=== PATIENT | male | born 1960 | race Caucasian/White ===

== ENCOUNTER 2016-08-05 04:09 | Emergency (ER) | payer OTHER ==
--- NOTE | 2016-08-05 08:02 | DIAGNOSTIC IMAGING REPORT ---
PROCEDURE: CT ABDOMEN/PELVIS W/O CONTRAST INDICATION: ABDOMINAL PAIN TECHNIQUE: Axial CT images were obtained through the abdomen and pelvis without IV contrast. Coronal and sagittal reformations were created. COMPARISON: None. FINDINGS: Moderate right lower and middle lobe atelectasis. Normal size heart. No hiatal hernia. 3 mm proximal to mid right ureteral calculus. Mild right hydronephrosis and mild to moderate right perinephric inflammation. There is another nonobstructing upper pole 3 mm right intrarenal calculus and three nonobstructing upper pole left intrarenal calculi. The largest is 4 mm. There are left parapelvic cysts and 5.5 cm exophytic left cortical cyst. The unenhanced appearance of the liver, adrenal glands, pancreas and spleen is normal. The abdominal aorta is normal in its course and caliber with trace atherosclerosis. There are no suspicious calcifications, retroperitoneal adenopathy or masses. The stomach, upper bowel loops, and mesentery appears normal. Intact anterior abdominal wall. No free fluid, or inflammation. Moderate sigmoid diverticulosis. The unenhanced appearance of the prostate gland, seminal vesicles, urinary bladder, pelvic vessels, and pelvic bowel loops is normal. Surgically absent appendix. No suspicious calcifications, free fluid, or mass. Intact osseous structures. Flowing bridging osteophytes in the lower thoracic spine. Fat-containing left inguinal hernia. IMPRESSION: 1. 3 mm proximal to mid right ureteral calculus causing mild right hydronephrosis and mild to moderate perinephric inflammation. 2. Nonobstructing intrarenal calculi bilaterally. 3. Sigmoid diverticulosis. 4. Surgically absent appendix. 5. Findings called to the emergency room. All CT scans at this facility use dose modulation, iterative reconstruction, and/or weight-based dosing when appropriate to reduce radiation dose to as low as reasonably achievable.
--- NOTE | 2016-08-05 08:06 | ED NURSING NOTES ---
Clinical Report - Nurses [facility] [address] [place] [address] 08/05/2016 4:11 Patient: ANGELA SKINNER [facility]#: [id number] TRIAGE Triage time 04:15 Aug 05 2016. Acuity: LEVEL 3. Chief Complaint: FREQUENCY VOIDING (Right flank and groin pain). 04:20 08/05/16. SEPSIS SCREEN: Sepsis Screen. Negative (no infection suspected/documented). JOSEPHINE COMA SCORE: Hermosa Coma Scale: 15- eyes open spontaneously (4); best verbal response- oriented x 4 (5); best motor response- obeys commands (6). --04:20 Rica Weiss R.N. 04:15 08/05/16. BP: 158/102 (regular adult cuff) taken on the left arm. HR: 97. RR: 18. O2 saturation: 97% on room air. Temp: 98.3 F (oral). Pain level now: 5/10. --04:20 Rica Weiss R.N. Weight: 108.8 kg stated. Height/Length: 72 inches Per Patient. BMI: 32.6. --04:18 Rica Weiss R.N. Medications None. --04:16 Rica Weiss R.N. Allergies No Known Drug Allergy. --04:17 Rica Weiss R.N. History Arrived by private vehicle. Historian: patient. Accompanied by family. Primary physician (No PCP). This started just prior to arrival. ( Patient has had history of kidney stones before, last one was 7 years ago). ( Nausea and vomiting). Treatment CAM MAKER: None. SOCIAL HX: Never smoker. Occasional alcohol use; consumes liquor. No infectious disease exposure. ABUSE ASSESSMENT: No report of abuse. --04:20 Rica Weiss R.N. PROBLEMS: Diabetes Mellitus Type 2. Nephrolithiasis. --04:17 Rica Weiss R.N. ADDITIONAL SURGERIES: Appendectomy. Tonsillectomy. --04:17 Rica Weiss R.N. Interventions ID band on patient. To treatment room. --04:20 Rica Weiss R.N. PHYSICAL ASSESSMENT 04:08/05/16. Ambulatory to room. Patient gowned. GENERAL / NEURO / PSYCH: Alert. Oriented X 4. Appears in no acute distress. HEENT: Mucous membranes are pink. RESPIRATORY: Respirations not labored. Breath sounds within normal limits. CVS: Normal heart rate and rhythm. Capillary refill less than 2 seconds. GI / : Abdomen soft and nontender. Bowel sounds within normal limits. SKIN: Skin is warm. --04:21 Rica Weiss R.N. NURSING PROGRESS NOTES 04:21 08/05/16. The plan of care for this patient has been created. Patient gowned. Head of bed elevated. Reassurance given. Two patient identifiers checked. Call light placed in reach. Side rails up x 2. Bed placed in lowest position. Brakes of bed on. Patient ready for evaluation- chart flagged and ED physician notified. --04:21 Rica Weiss R.N. 04:35 08/05/2016 Site #1 started via IV in the right hand with an 20g angiocath, with aseptic technique and good blood return; one attempt. Blood drawn: rainbow set. Labeled in the presence of the patient and sent to the lab. Saline lock flushed with 10 mL saline. --04:35 Rica Weiss R.N. 04:36 08/05/2016 Zofran (Ondansetron HCl) IVP 4 mg given over 1 minute(s) via site #1. Allergies verified and confirmed 5 rights. IV patency established. IV site checked: no pain, redness, or swelling. IV flushed thoroughly pre- and post-medication administration. IVP given by RN. --04:36 Rica Weiss R.N. 04:37 08/05/2016 Morphine IVP 4 mg given over 2 minute(s) via site #1. Allergies verified, confirmed 5 rights and sedative warning given to the patient. IV patency established. IV site checked: no pain, redness, or swelling. IV flushed thoroughly pre- and post-medication administration. IVP given by RN. --04:37 Rica Weiss R.N. 04:40 08/05/16. --04:40 Rica Weiss R.N. 04:38 08/05/16. BP: 152/96. HR: 72. RR: 18. O2 saturation: 97% on room air. Pain level now: 07/04. --04:40 Rica Weiss R.N. 04:42 08/05/2016 Toradol IVP 30 mg given over 1 minute(s) via site #1. Allergies verified and confirmed 5 rights. IV patency established. IV site checked: no pain, redness, or swelling. IV flushed thoroughly pre- and post-medication administration. IVP given by RN. --04:42 Rica Weiss R.N. 04:44 08/05/2016 Started bag #1 1000 mL IV Fluids IV NS (Saline); bolus of 1000 mL over 1 hour(s) via site #1 via IV pump. Allergies verified and confirmed 5 rights. IV patency established. IV site checked: no pain, redness, or swelling. IV flushed thoroughly pre- and post-medication administration. --04:44 Rica Weiss R.N. 05:09 08/05/2016 Zofran IVP Response: no adverse reaction pain is gone now. Symptoms have improved the patient feels better. --05:09 Rica Weiss R.N. 05:09 08/05/2016 Morphine IVP Response: no adverse reaction pain is improving. Symptoms have improved the patient feels better. --05:09 Rica Weiss R.N. 05:09 08/05/2016 Toradol IVP Response: no adverse reaction pain is improving. Symptoms have improved the patient feels better. --05:09 Rica Weiss R.N. 05:08/05/16. ( Patient offered blanket and he declined). --05:09 Rica Weiss R.N. 05:08/05/16. BP: 144/85 (regular adult cuff) taken on the left arm. HR: 62. RR: 18. O2 saturation: 92% on room air. Pain level now: 04/05. --05:10 Rica Weiss R.N. 05:46 08/05/2016 Started bag #1 1000 mL IV Fluids IV NS (Saline); bolus of 1000 mL over 1 hour(s) via site #1 via IV pump. Allergies verified and confirmed 5 rights. IV patency established. IV site checked: no pain, redness, or swelling. IV flushed thoroughly pre- and post-medication administration. --05:46 Rica Weiss R.N. 05:46 08/05/16. BP: 142/91 (regular adult cuff) taken on the left arm. HR: 68. RR: 18 (regular). O2 saturation: 93% on room air. Pain level now: 04/05. --05:47 Rica Weiss R.N. 05:47 08/05/16. ( Patient offered a blanket, he declined). --05:47 Rica Weiss R.N. 06:13 08/05/16. BP: 126/82 (regular adult cuff) taken on the left arm. HR: 73. RR: 18. O2 saturation: 94% on room air. Pain level now: 05/06. --06:14 Rica Weiss R.N. 06:14 08/05/16. ( Patient still unable to leave a UA at this time). --06:14 Rica Weiss R.N. 06:33 08/05/16. BP: 131/77 (regular adult cuff) taken on the left arm. HR: 70. RR: 18. O2 saturation: 94% on room air. Pain level now: 07/04. --06:34 Rica Weiss R.N. 05:50 08/05/2016 IV Fluids IV NS Discontinued: bag #1 completed. Total amount infused: 1000 mL. IV patency established. IV site checked: no pain, redness, or swelling. IV flushed thoroughly. --06:44 Rica Weiss R.N. 06:58 08/05/2016 Morphine IVP 4 mg given over 1 minute(s) via site #1. Allergies verified, confirmed 5 rights and sedative warning given to the patient. IV patency established. IV site checked: no pain, redness, or swelling. IV flushed thoroughly pre- and post-medication administration. IVP given by RN. --06:58 Rica Weiss R.N. 06:59 08/05/16. ( Patient still unable to leave a UA). --06:59 Rica Weiss R.N. 07:02 08/05/2016 IV Fluids IV NS Discontinued: bag #2 completed. Total amount infused: 1000 mL. IV patency established. IV site checked: no pain, redness, or swelling. IV flushed thoroughly. --07:02 Rica Weiss R.N. 07:02 08/05/16. ( Patient was bladder scanned and only revealed 153cc urine). --07:02 Rica Weiss R.N. 07:02 08/05/16. BP: 132/90 (regular adult cuff) taken on the left arm. HR: 75. RR: 18 (regular). O2 saturation: 93% on room air. Pain level now: 04/05. --07:03 Rica Weiss R.N. Care transferred and report given (RUFUS Sahu). --07:13 Rica Weiss R.N. 07:13 08/05/16. Care transferred and report received (from RUFUS Strauss). --07:13 Adelina Lima R.N. 07:29 08/05/16. Patient ID band checked for patient name and birthdate: patient confirmed. Clean catch urine collected with return of yellow-colored clear urine; odor is normal; sample sent to lab for urinalysis. Specimen labeled in the presence of the patient. Patient and family informed about reason for wait and about plan of care. --07:29 Adelina Lima R.N. 07:30 08/05/2016 Morphine IVP Response: no adverse reaction pain is gone now. Symptoms have improved the patient feels better. 08/05/2016 07:02 BP: 132/90. HR: 75. RR: 18. O2 saturation: 93%. Pain level now: 04/05. --07:30 Adelina Lima R.N. DISPOSITION / DISCHARGE 08:16 08/05/16. BP: 136/86. HR: 80. RR: 17. O2 saturation: 99%. Temp: deferred. Pain level now: 05/06. --08:17 Adelina Lima R.N. 08:07 08/05/2016 Site #1 removed upon discharge. Manual pressure and bandaid applied. --08:17 Adelina Lima R.N. 08:17 08/05/16. No learning barriers present. Discharge instructions provided and reviewed with the patient and spouse. Reviewed warnings. Reviewed medication(s). Treatments reviewed. Reviewed diet. Patient and spouse verbalized understanding. Written instructions provided in Slovak. The patient was discharged by the physician. He was discharged home and accompanied by spouse. He left the Emergency Department ambulatory and via private vehicle. Spouse driving. --08:17 Adelina Lima R.N. Locked/Released at 08/05/2016 8:36 by Adelina Lima R.N.
--- NOTE | 2016-08-05 08:06 | ED ORDER SUMMARY ---
..... Patient: ANGELA SKINNER OrderSheet [facility] VisitID: [id number] [place] [address] 55y, M Registration Date/Time: 08/05/2016 ORDER SHEET Weight: 108.8 kg (stated) Allergies: No Known Drug Allergy GENERAL ORDERS: CBC w Diff Urgent (04:21 08/05/2016 Marc Aleman) (4:36 Hanh R.N.) CMP Urgent (04:08/05/2016 Marc Aleman) (4:36 MATTanderbarbra R.N.) UA-Culture if indicated Urgent (04:08/05/2016 Marc Aleman) (Ack 4:44 AMADAullkatie) (Ack 4:44 Hanh R.N.) (7:28 Oumar R.N.) PT with INR Urgent (04:08/05/2016 Marc Aleman) (4:38 Hanh R.N.) Lipase Urgent (04:08/05/2016 Marc Aleman) (4:36 MATTanderbarbra R.N.) CT Abd/Pel wo Cont Urgent (06:54 08/05/2016 Marc Aleman) (Ack 6:55 LMuller) (7:12 JSanders R.N.) MEDICATION ORDERS: IV FLUIDS: IV NS : initial bolus 1000 mL (1000 mL/hr), then none - for X1 (NOW) (04:21 08/05/2016 Marc Aleman) (4:44 Hanh R.N.) Zofran IV 4 mg (NOW) (04:34 08/05/2016 MATTanderbarbra R.N. verbal order read back to Marc Aleman) (4:36 MATTanderbarbra R.N.) Morphine IV 4 mg (HIGH ALERT MEDICATION, NOW) (04:35 08/05/2016 MATTanders R.N. verbal order read back to Marc Aleman) (4:38 MATTanders R.N.) Toradol IV 30 mg (NOW) (04:38 08/05/2016 MATTanderbarbra R.N. verbal order read back to Marc Aleman) (4:42 JSanders R.N.) IV NS : initial bolus 1000 mL (1000 mL/hr), then none - for X1 (NOW) (05:39 08/05/2016 Marc Aleman) (5:46 JSanders R.N.) Morphine IV 4 mg (HIGH ALERT MEDICATION, NOW) (06:46 08/05/2016 Marc Aleman) (Ack 6:55 JSanders R.N.) (6:58 JSanders R.N.) ORDER SHEET NOTES: [Electronically signed by Adelina Lima R.N. (08:36 08/05/2016)] [Electronically signed by Baljinder Wilson Dr. (07:27 08/06/2016)] [Electronically locked/signed by Adelina Lima R.N. (08:36 08/05/2016)]
--- NOTE | 2016-08-05 08:06 | ED ORDER SUMMARY ---
..... Patient: ANGELA SKINNER OrderSheet [facility] VisitID: [id number] [place] [address] 55y, M Registration Date/Time: 08/05/2016 ORDER SHEET Weight: 108.8 kg (stated) Allergies: No Known Drug Allergy GENERAL ORDERS: CBC w Diff Urgent (04:21 08/05/2016 Marc Aleman) (4:36 Hanh R.N.) CMP Urgent (04:08/05/2016 Marc Aleman) (4:36 MATTanderbarbra R.N.) UA-Culture if indicated Urgent (04:08/05/2016 Marc Aleman) (Ack 4:44 AMADAullkatie) (Ack 4:44 Hanh R.N.) (7:28 Oumar R.N.) PT with INR Urgent (04:08/05/2016 Marc Aleman) (4:38 Hanh R.N.) Lipase Urgent (04:08/05/2016 Marc Aleman) (4:36 MATTanderbarbra R.N.) CT Abd/Pel wo Cont Urgent (06:54 08/05/2016 Marc Aleman) (Ack 6:55 LMuller) (7:12 JSanders R.N.) MEDICATION ORDERS: IV FLUIDS: IV NS : initial bolus 1000 mL (1000 mL/hr), then none - for X1 (NOW) (04:21 08/05/2016 Marc Aleman) (4:44 Hanh R.N.) Zofran IV 4 mg (NOW) (04:34 08/05/2016 MATTanderbarbra R.N. verbal order read back to Marc Aleman) (4:36 MATTanderbarbra R.N.) Morphine IV 4 mg (HIGH ALERT MEDICATION, NOW) (04:35 08/05/2016 MATTanders R.N. verbal order read back to Marc Aleman) (4:38 MATTanders R.N.) Toradol IV 30 mg (NOW) (04:38 08/05/2016 MATTanderbarbra R.N. verbal order read back to Marc Aleman) (4:42 JSanders R.N.) IV NS : initial bolus 1000 mL (1000 mL/hr), then none - for X1 (NOW) (05:39 08/05/2016 Marc Aleman) (5:46 JSanders R.N.) Morphine IV 4 mg (HIGH ALERT MEDICATION, NOW) (06:46 08/05/2016 Marc Aleman) (Ack 6:55 JSanders R.N.) (6:58 JSanders R.N.) ORDER SHEET NOTES: [Electronically signed by Adelina Lima R.N. (08:36 08/05/2016)] [Electronically signed by Baljinder Wilson Dr. (07:27 08/06/2016)] [Electronically locked/signed by Adelina Lima R.N. (08:36 08/05/2016)]
--- NOTE | 2016-08-05 08:06 | ED CLINICAL REPORT ---
Clinical Report - Physicians/Mid Levels [facility] [address] [place] [address] 08/05/2016 4:11 Patient: ANGELA SKINNER Time Seen: 042. Arrived- By private vehicle. Historian- patient. HISTORY OF PRESENT ILLNESS Chief Complaint: FLANK PAIN and right. This started today and is still present (staying the same). It was abrupt in onset and has been intermittent but is not gone now. It is described as located in the right flank and radiating (right groin). At its maximum, severity described as severe. When seen in the E.D., severity described as severe. Modifying factors. Not worsened by anything. Not relieved by anything. The patient has had nausea. No loss of appetite, vomiting or diarrhea. No recent travel. Similar symptoms previously: None. Recent medical care: Not recently seen/assessed. REVIEW OF SYSTEMS No fever or skin rash. All systems otherwise negative, except as recorded above. PAST HISTORY See nurses notes. Medications: None. Allergies: No Known Drug Allergy. SOCIAL HISTORY Never smoker. No alcohol use or drug use. No recent travel. Is a local resident. FAMILY HISTORY Negative. ADDITIONAL NOTES The nursing notes have been reviewed. PHYSICAL EXAM Vital Signs: 08/05/2016 04:15 BP: 158/102. HR: 97. RR: 18. O2 saturation: 97%. Temp: 98.3 F. Pain level now: 5/10. Blood pressure normal. Oxygen saturation normal. Appearance: Alert. Oriented X3. No acute distress. Eyes: Pupils equal, round and reactive to light. Eyes normal inspection. ENT: Ears normal. Nose normal. Pharynx normal. Neck: Normal inspection. Neck supple. CVS: Normal heart rate and rhythm. Heart sounds normal. Pulses normal. Respiratory: No respiratory distress. Breath sounds normal. Chest nontender. No rales, rhonchi or wheezes. Abdomen: Soft and nontender. Bowel sounds normal. Back: Moderate CVA tenderness on the right. Skin: Skin warm and dry. Normal skin color. No rash. Normal skin turgor. Extremities: Extremities exhibit normal ROM. No lower extremity edema. Neuro: Oriented X 3. No motor deficit. No sensory deficit. LABS, X-RAYS, AND EKG Abdominal CT: Addendum: Description of gallbladder was inadvertently left off of the initial report. Findings (gallbladder): Tiny calcifications are present dependently within the phrygian cap at the gallbladder fundus. There are at least two coarse calcifications in dependently near the neck of the gallbladder measuring about 10 mm. No pericholecystic inflammation, wall thickening, or fluid. Impression: 1. Cholelithiasis without CT evidence of cholecystitis. 2. Additional findings discussed with Dr. Wilson. Addendum by: Anay Velasquez MD PROCEDURE: CT ABDOMEN/PELVIS W/O CONTRAST INDICATION: ABDOMINAL PAIN TECHNIQUE: Axial CT images were obtained through the abdomen and pelvis without IV contrast. Coronal and sagittal reformations were created. COMPARISON: None. FINDINGS: Moderate right lower and middle lobe atelectasis. Normal size heart. No hiatal hernia. 3 mm proximal to mid right ureteral calculus. Mild right hydronephrosis and mild to moderate right perinephric inflammation. There is another nonobstructing upper pole 3 mm right intrarenal calculus and three nonobstructing upper pole left intrarenal calculi. The largest is 4 mm. There are left parapelvic cysts and 5.5 cm exophytic left cortical cyst. The unenhanced appearance of the liver, adrenal glands, pancreas and spleen is normal. The abdominal aorta is normal in its course and caliber with trace atherosclerosis. There are no suspicious calcifications, retroperitoneal adenopathy or masses. The stomach, upper bowel loops, and mesentery appears normal. Intact anterior abdominal wall. No free fluid, or inflammation. Moderate sigmoid diverticulosis. The unenhanced appearance of the prostate gland, seminal vesicles, urinary bladder, pelvic vessels, and pelvic bowel loops is normal. Surgically absent appendix. No suspicious calcifications, free fluid, or mass. Intact osseous structures. Flowing bridging osteophytes in the lower thoracic spine. Fat-containing left inguinal hernia. IMPRESSION: 1. 3 mm proximal to mid right ureteral calculus causing mild right hydronephrosis and mild to moderate perinephric inflammation. 2. Nonobstructing intrarenal calculi bilaterally. 3. Sigmoid diverticulosis. 4. Surgically absent appendix. Study type: renal stone evaluation. The study was independently viewed by me, interpreted by the radiologist and discussed with the radiologist. Laboratory Tests: CBC w Diff: (LA: 08/05/2016 04:30) ( MsgRcvd 08/05/2016 04:38) Final results Test Result Flag Units (Reference) WHITE BLOOD COUNT 9.6 K/uL (4.5-11.5) RED BLOOD COUNT 5.51 M/uL (4.50-5.90) HEMOGLOBIN 16.2 gm/dL (13.5-17.5) HEMATOCRIT 47.6 % (41.0-53.0) MEAN CELL VOLUME 86 fL (80-100) MEAN CORPUSCULAR HGB 29 pg (26-34) MEAN CORPUSCULAR HGB CONC 34 g/dL (31-37) RED CELL DISTRIBUTION WIDTH 13.9 % (11.6-14.8) PLATELET COUNT 214 K/uL (150-400) NEUTROPHIL % 63.0 % (50-75) LYMPH % 28.6 % (25-40) MONO % 6.6 % (3-14) EOSINOPHIL % 1.6 % (0-4) BASOPHIL % 0.2 % (0-2) PT with INR: (LA: 08/05/2016 04:50) ( MsgRcvd 08/05/2016 05:05) Final results Test Result Flag Units (Reference) INR 0.9 (0.8-1.2) Low Intensity Therapy: INR 1.5-2.0 PT range 18.5-23.1Mod.Intensity Therapy: INR 2.0-3.0 PT range 23.1-31.5High Intensity Therapy: INR 2.5-3.5 PT range 27.4-35.5High Intensity Therapy 2: INR 3.0-4.0 PT range 31.5-39.3 CMP: (LA: 08/05/2016 04:30) ( MsgRcvd 08/05/2016 05:25) Final results Test Result Flag Units (Reference) GLUCOSE 245 H mg/dL (70-110) BUN 14 mg/dL (7-18) CREATININE 0.7 mg/dL (0.6-1.3) Estimated GFR >60 mL/min Estimated GFR- >60 mL/min Note: Persistent reduction over 3 months in eGFR<60 mL/min/1.73 m2 defines CKD. Patients with eGFR values>=60 mL/min/1.73 m2 may also have CKD if evidence ofpersistent proteinuria. Additional information may be foundat www.kidney.org. SODIUM 136 mmol/L (136-145) POTASSIUM 4.7 mmol/L (3.5-5.1) MAY BE FALSELY INCREASED. SPECIMEN GROSSLY HEMOLYZED ANDPATIENT DIDN'T WANT TO BE DRAWN AGAIN. CHLORIDE 104 mmol/L (98-107) CARBON DIOXIDE 22 mmol/L (21-32) CALCIUM 8.3 L mg/dL (8.5-10.1) TOTAL PROTEIN 7.7 g/dL (6.4-8.2) ALBUMIN 4.0 g/dL (3.3-5.0) BILIRUBIN, TOTAL 1.3 H mg/dL (0.0-1.0) ALKALINE PHOSPHATASE 93 U/L (46-116) AST (SGOT) 41 H U/L (15-37) MAY BE FALSELY INCREASED. SPECIMEN GROSSLY HEMOLYZED ANDPATIENT DIDN'T WANT TO BE DRAWN AGAIN. ALT (SGPT) 38 U/L (12-78) LIPASE 249 U/L (73-393) . PROGRESS AND PROCEDURES Course of Care: The patient is a pleasant 55-year-old male presenting for right-sided flank pain. Patient reports he has had pain like this in the past. Differential diagnosis includes urinary tract infection, bowel objection, or renal colic. Patient be evaluated urinalysis, CT scan of the abdomen and pelvis and blood work. Patient is agreeable to the treatment plan. Pain medication as been provided. Patient's workup was remarkable for the findings above. Patient with findings ofureteral lithiasis. Patient also with hematuria. Signs and symptoms are consistent with renal colic. Stone is noted to be 3 mm in size. High likelihood of passing spontaneously. Patient reports that he is not had a kidney stone in over 7 years and does not have a urologist. Referral to urology as been provided. Because the patient's pain has been controlled here in the emergency department in patients does not have any other concerning findings on his examination and workup and continues have a nonsurgical abdomen, do not feel patient needs to be admitted to the hospital require further emergency department workup/evaluation. Discussed with the patient there workup here in the emergency department any diagnosis, home care, follow-up, and return precautions. All questions have been answered. The patient expressed understanding of these instructions and was agreeable to them. Disposition: Discharged. Condition: good. CLINICAL IMPRESSION 08/05/2016 07:02 BP: 132/90. HR: 75. RR: 18. O2 saturation: 93%. Pain level now: 04/05. Microscopic hematuria Hypertensive. Oxygen saturation normal. Right renal colic with a single calculus (acute). Ureterolithiasis (single stone) in the right ureter (acute). INSTRUCTIONS Warnings: GENERAL WARNINGS: Return or contact your physician immediately if your condition worsens or changes unexpectedly, if not improving as expected, or if other problems arise. SPECIFICALLY, return if you develop pain, fever, vomiting, the inability to keep fluids down, blood in vomitus, blood in diarrhea, fainting or lightheadedness. Your Current Medications: CONTINUE TAKING THE FOLLOWING MEDICATIONS: None*. Prescription Medications: Zofran (orally disintegrating tablets) 4 mg: take 1 orally every 8 hours as needed for nausea and vomiting. Dispense ten (10). No refill. Substitution is permissible. Motrin 600 mg tablets: take 1 tablet orally every 6 hours as needed for pain. Dispense thirty (30). No refill. Substitution is permissible. (take with food) Percocet 5 mg/325 mg: take 1 tablet orally every 6 hours as needed for pain. Dispense twenty (20). No refill. Substitution is permissible. Follow-up: Return to the emergency department as needed. Follow up with your doctor in three days. Reason for referral: recheck today's concer. Screening today revealed the patient's blood pressure to be in the normal range. The patient should follow up with a primary care provider for blood pressure management. Understanding of the discharge instructions verbalized by patient. Follow-up with: Radu Holguin MD, Urology, , [address] [place] [address], [facility] Follow up in one week. Reason for referral: recheck today's concerns. Summary of care provided to patient via paper. (Electronically signed by Baljinder Wilson Dr. 08/06/2016 7:27)
--- NOTE | 2016-08-06 07:28 | ED DISCHARGE INSTRUCTIONS ---
Patient: ANGELA SKINNER General Instructions [facility] VisitID: [id number] [place] [address] 55y, M Registration Date/Time: 08/05/2016 08/05/2016 07:02 BP: 132/90. HR: 75. RR: 18. O2 saturation: 93%. Pain level now: 04/05. Microscopic hematuria Hypertensive. Oxygen saturation normal. Right renal colic with a single calculus (acute). Ureterolithiasis (single stone) in the right ureter (acute). INSTRUCTIONS Warnings: GENERAL WARNINGS: Return or contact your physician immediately if your condition worsens or changes unexpectedly, if not improving as expected, or if other problems arise. SPECIFICALLY, return if you develop pain, fever, vomiting, the inability to keep fluids down, blood in vomitus, blood in diarrhea, fainting or lightheadedness. Your Current Medications: CONTINUE TAKING THE FOLLOWING MEDICATIONS: None*. Prescription Medications: Zofran (orally disintegrating tablets) 4 mg: take 1 orally every 8 hours as needed for nausea and vomiting. Dispense ten (10). No refill. Substitution is permissible. Motrin 600 mg tablets: take 1 tablet orally every 6 hours as needed for pain. Dispense thirty (30). No refill. Substitution is permissible. (take with food) Percocet 5 mg/325 mg: take 1 tablet orally every 6 hours as needed for pain. Dispense twenty (20). No refill. Substitution is permissible. Follow-up: Return to the emergency department as needed. Follow up with your doctor in three days. Reason for referral: recheck today's concer. Screening today revealed the patient's blood pressure to be in the normal range. The patient should follow up with a primary care provider for blood pressure management. Understanding of the discharge instructions verbalized by patient. Follow-up with: Radu Holguin MD, Urology, , [address] [place] [address], [facility], [id number] Follow up in one week. Reason for referral: recheck today's concerns. Summary of care provided to patient via paper. ADDITIONAL INFORMATION Blood In The Urine Blood in the urine ("hematuria") has many possible causes. If it occurs after an injury (such as a car accident or fall), it is most often a sign of bruising to the kidney or bladder. Common medical causes of blood in the urine include urinary tract infection, kidney stone, inflammation, tumors, or certain other diseases of the kidney or bladder. Menstruation can cause blood to appear in the urine sample, although it is not coming from the urinary tract. If only a trace amount of blood is present, it will show up on the urine test, even though the urine may be yellow and not pink or red. This may occur with any of the above conditions, as well as heavy exercise or high fever. In this case, your doctor may want to repeat the urine test on another day. This will show if the blood is still present. If so, then other tests can be done to find out the cause. Home Care: If your urine does not appear bloody (pink, brown or red) then you do not need to restrict your activity in any way. If you can see blood in your urine, rest and avoid heavy exertion until your next exam. Do not use aspirin or anti-inflammatory medicine like ibuprofen (Motrin, Advil) or naproxen (Naprosyn, Aleve). These thin the blood and may increase bleeding. Follow Up with your doctor or as advised by our staff. If you were injured and had blood in your urine, you should have a repeat urine test in 1-2 days. Contact your doctor or return to this facility for this test. [NOTE: A radiologist will review any X-rays that were taken. We will notify you of any new findings that may affect your care.] Get Prompt Medical Attention if any of the following occur: Bright red blood or blood clots in the urine (if a new symptom) Weakness, dizziness or fainting New groin, abdominal or back pain Fever of 100.4F (38C) or higher, or as directed by your healthcare provider Repeated vomiting Bleeding from nose, gums or easy bruising Kidney Stone (W/ Colic) The sharp cramping pain and nausea/vomiting that you have is due to a small stone which has formed in the kidney and is now passing down a narrow tube (ureter) on its way to your bladder. Once it reaches your bladder, the pain will stop. The stone may pass in your urine stream in one piece. [The size may be 1/16" to 1/4" (1-6mm)]. Or, the stone may also break up into travis fragments which you may not even notice. Once you have had a kidney stone, you are at risk for developing another one in the future. Home Care: Drink plenty of fluids (at least 8 to 10 glasses of water a day). Most stones will pass on their own, but may take from a few hours to a few days. Sometimes the stone is too large to pass by itself and special methods will have to be used to remove the stone. Each time you urinate, do so in a jar. Pour the urine from the jar through the strainer and into the toilet. Continue doing this until 24 hours after your pain stops. By then, if there was a kidney stone, it should pass from your bladder. Some stones dissolve into sand-like particles and pass right through the strainer. In that case, you wont ever see a stone. Save any stone that you find in the strainer and bring it to your doctor for analysis. It may be possible to prevent certain types of stones from forming. Therefore, it is important to know what kind of stone you have. Try to stay as active as possible since this will help the stone pass. Do not stay in bed unless your pain prevents you from getting up. You may notice a red, pink or brown color to your urine. This is normal while passing a kidney stone. Follow Up with your doctor or return to this facility if the pain lasts more than 48 hours. Get Prompt Medical Attention if any of the following occur: Pain that is not controlled by the medicine given Repeated vomiting or unable to keep down fluids Weakness, dizziness or fainting Fever of 100.4F (38C) or higher, or as directed by your healthcare provider Passage of solid red or brown urine (can't see through it) or urine with lots of blood clots Unable to pass urine for 8 hours and increasing bladder pressure Blood In The Urine Blood in the urine ("hematuria") has many possible causes. If it occurs after an injury (such as a car accident or fall), it is most often a sign of bruising to the kidney or bladder. Common medical causes of blood in the urine include urinary tract infection, kidney stone, inflammation, tumors, or certain other diseases of the kidney or bladder. Menstruation can cause blood to appear in the urine sample, although it is not coming from the urinary tract. If only a trace amount of blood is present, it will show up on the urine test, even though the urine may be yellow and not pink or red. This may occur with any of the above conditions, as well as heavy exercise or high fever. In this case, your doctor may want to repeat the urine test on another day. This will show if the blood is still present. If so, then other tests can be done to find out the cause. Home Care: If your urine does not appear bloody (pink, brown or red) then you do not need to restrict your activity in any way. If you can see blood in your urine, rest and avoid heavy exertion until your next exam. Do not use aspirin or anti-inflammatory medicine like ibuprofen (Motrin, Advil) or naproxen (Naprosyn, Aleve). These thin the blood and may increase bleeding. Follow Up with your doctor or as advised by our staff. If you were injured and had blood in your urine, you should have a repeat urine test in 1-2 days. Contact your doctor or return to this facility for this test. [NOTE: A radiologist will review any X-rays that were taken. We will notify you of any new findings that may affect your care.] Get Prompt Medical Attention if any of the following occur: Bright red blood or blood clots in the urine (if a new symptom) Weakness, dizziness or fainting New groin, abdominal or back pain Fever of 100.4F (38C) or higher, or as directed by your healthcare provider Repeated vomiting Bleeding from nose, gums or easy bruising Ondansetron Oral disintegrating tablet What is this medicine? ONDANSETRON (on RANDALL se ginna) is used to treat nausea and vomiting caused by chemotherapy. It is also used to prevent or treat nausea and vomiting after surgery. How should I use this medicine? These tablets are made to dissolve in the mouth. Do not try to push the tablet through the foil backing. With dry hands, peel away the foil backing and gently remove the tablet. Place the tablet in the mouth and allow it to dissolve, then swallow. While you may take these tablets with water, it is not necessary to do so. Talk to your salvage worker regarding the use of this medicine in children. Special care may be needed. What side effects may I notice from receiving this medicine? Side effects that you should report to your doctor or health respiratory care instructor as soon as possible: allergic reactions like skin rash, itching or hives, swelling of the face, lips, or tongue breathing problems dizziness fast or irregular heartbeat feeling faint or lightheaded, falls fever and chills swelling of the hands and feet tightness in the chest Side effects that usually do not require medical attention (report to your doctor or health respiratory care instructor if they continue or are bothersome): constipation or diarrhea headache What may interact with this medicine? Do not take this medicine with any of the following medications: -apomorphine -cisapride -dofetilide -dronedarone -pimozide -thioridazine -ziprasidone This medicine may also interact with the following medications: -carbamazepine -phenytoin -rifampicin -tramadol -other medicines that prolong the QT interval (cause an abnormal heart rhythm) What if I miss a dose? If you miss a dose, take it as soon as you can. If it is almost time for your next dose, take only that dose. Do not take double or extra doses. Where should I keep my medicine? Keep out of the reach of children. Store between 2 and 30 degrees C (36 and 86 degrees F). Throw away any unused medicine after the expiration date. What should I tell my health care provider before I take this medicine? They need to know if you have any of these conditions: heart disease history of irregular heartbeat liver disease low levels of magnesium or potassium in the blood an unusual or allergic reaction to ondansetron, granisetron, other medicines, foods, dyes, or preservatives or trying to get breast-feeding What should I watch for while using this medicine? Check with your doctor or health respiratory care instructor as soon as you can if you have any sign of an allergic reaction. Ibuprofen Oral tablet What is this medicine? IBUPROFEN (eye BYOO proe fen) is a non-steroidal anti-inflammatory drug (NSAID). It is used for dental pain, fever, headaches or migraines, osteoarthritis, rheumatoid arthritis, or painful monthly periods. It can also relieve minor aches and pains caused by a cold, flu, or sore throat. How should I use this medicine? Take this medicine by mouth with a glass of water. Follow the directions on the prescription label. Take this medicine with food if your stomach gets upset. Try to not lie down for at least 10 minutes after you take the medicine. Take your medicine at regular intervals. Do not take your medicine more often than directed. A special MedGuide will be given to you by the pharmacist with each prescription and refill. Be sure to read this information carefully each time. Talk to your salvage worker regarding the use of this medicine in children. Special care may be needed. What side effects may I notice from receiving this medicine? Side effects that you should report to your doctor or health respiratory care instructor as soon as possible: allergic reactions like skin rash, itching or hives, swelling of the face, lips, or tongue black or bloody stools, blood in the urine or in vomit breathing problems changes in vision chest pain general ill feeling or flu-like symptoms nausea or vomiting redness, blistering, peeling or loosening of the skin, including inside the mouth slurred speech or weakness on one side of the body stomach pain unexplained weight gain or swelling unusually weak or tired yellowing of eyes or skin Side effects that usually do not require medical attention (report to your doctor or health respiratory care instructor if they continue or are bothersome): constipation or diarrhea dizziness gas or heartburn stomach upset What may interact with this medicine? Do not take this medicine with any of the following medications: cidofovir ketorolac methotrexate pemetrexed This medicine may also interact with the following medications: alcohol aspirin diuretics lithium other drugs for inflammation like prednisone warfarin What if I miss a dose? If you miss a dose, take it as soon as you can. If it is almost time for your next dose, take only that dose. Do not take double or extra doses. Where should I keep my medicine? Keep out of the reach of children. Store at room temperature between 15 and 30 degrees C (59 and 86 degrees F). Keep container tightly closed. Throw away any unused medicine after the expiration date. What should I tell my health care provider before I take this medicine? They need to know if you have any of these conditions: asthma cigarette smoker drink more than 3 alcohol containing drinks a day heart disease or circulation problems such as heart failure or leg edema (fluid retention) high blood pressure kidney disease liver disease stomach bleeding or ulcers an unusual or allergic reaction to ibuprofen, aspirin, other NSAIDS, other medicines, foods, dyes, or preservatives or trying to get breast-feeding What should I watch for while using this medicine? Tell your doctor or healthcare professional if your symptoms do not start to get better or if they get worse. This medicine does not prevent heart attack or stroke. In fact, this medicine may increase the chance of a heart attack or stroke. The chance may increase with longer use of this medicine and in people who have heart disease. If you take aspirin to prevent heart attack or stroke, talk with your doctor or health respiratory care instructor. Do not take other medicines that contain aspirin, ibuprofen, or naproxen with this medicine. Side effects such as stomach upset, nausea, or ulcers may be more likely to occur. Many medicines available without a prescription should not be taken with this medicine. This medicine can cause ulcers and bleeding in the stomach and intestines at any time during treatment. Ulcers and bleeding can happen without warning symptoms and can cause . To reduce your risk, do not smoke cigarettes or drink alcohol while you are taking this medicine. You may get drowsy or dizzy. Do not drive, use machinery, or do anything that needs mental alertness until you know how this medicine affects you. Do not stand or sit up quickly, especially if you are an older patient. This reduces the risk of dizzy or fainting spells. This medicine can cause you to bleed more easily. Try to avoid damage to your teeth and gums when you brush or floss your teeth. Oxycodone Hydrochloride, Acetaminophen Oral tablet What is this medicine? ACETAMINOPHEN; OXYCODONE (a set a JAYDEN dionte fen; ox i KOE done) is a pain reliever. It is used to treat mild to moderate pain. How should I use this medicine? Take this medicine by mouth with a full glass of water. Follow the directions on the prescription label. Take your medicine at regular intervals. Do not take your medicine more often than directed. Talk to your salvage worker regarding the use of this medicine in children. Special care may be needed. Patients over 65 years old may have a stronger reaction and need a smaller dose. What side effects may I notice from receiving this medicine? Side effects that you should report to your doctor or health respiratory care instructor as soon as possible: allergic reactions like skin rash, itching or hives, swelling of the face, lips, or tongue breathing difficulties, wheezing confusion light headedness or fainting spells severe stomach pain yellowing of the skin or the whites of the eyes Side effects that usually do not require medical attention (report to your doctor or health respiratory care instructor if they continue or are bothersome): dizziness drowsiness nausea vomiting What may interact with this medicine? alcohol antihistamines barbiturates like amobarbital, butalbital, butabarbital, methohexital, pentobarbital, phenobarbital, thiopental, and secobarbital benztropine drugs for bladder problems like solifenacin, trospium, oxybutynin, tolterodine, hyoscyamine, and methscopolamine drugs for breathing problems like ipratropium and tiotropium drugs for certain stomach or intestine problems like propantheline, homatropine methylbromide, glycopyrrolate, atropine, belladonna, and dicyclomine general anesthetics like etomidate, ketamine, nitrous oxide, propofol, desflurane, enflurane, halothane, isoflurane, and sevoflurane medicines for depression, anxiety, or psychotic disturbances medicines for sleep muscle relaxants naltrexone narcotic medicines (opiates) for pain phenothiazines like perphenazine, thioridazine, chlorpromazine, mesoridazine, fluphenazine, prochlorperazine, promazine, and trifluoperazine scopolamine tramadol trihexyphenidyl What if I miss a dose? If you miss a dose, take it as soon as you can. If it is almost time for your next dose, take only that dose. Do not take double or extra doses. Where should I keep my medicine? Keep out of the reach of children. This medicine can be abused. Keep your medicine in a safe place to protect it from theft. Do not share this medicine with anyone. Selling or giving away this medicine is dangerous and against the law. Store at room temperature between 20 and 25 degrees C (68 and 77 degrees F). Keep container tightly closed. Protect from light. This medicine may cause accidental overdose and if it is taken by other adults, children, or pets. Flush any unused medicine down the toilet to reduce the chance of harm. Do not use the medicine after the expiration date. What should I tell my health care provider before I take this medicine? They need to know if you have any of these conditions: brain tumor Crohn's disease, inflammatory bowel disease, or ulcerative colitis drink more than 3 alcohol containing drinks per day drug abuse or addiction head injury heart or circulation problems kidney disease or problems going to the bathroom liver disease lung disease, asthma, or breathing problems an unusual or allergic reaction to acetaminophen, oxycodone, other opioid analgesics, other medicines, foods, dyes, or preservatives or trying to get breast-feeding What should I watch for while using this medicine? Tell your doctor or health respiratory care instructor if your pain does not go away, if it gets worse, or if you have new or a different type of pain. You may develop tolerance to the medicine. Tolerance means that you will need a higher dose of the medication for pain relief. Tolerance is normal and is expected if you take this medicine for a long time. Do not suddenly stop taking your medicine because you may develop a severe reaction. Your body becomes used to the medicine. This does NOT mean you are addicted. Addiction is a behavior related to getting and using a drug for a non-medical reason. If you have pain, you have a medical reason to take pain medicine. Your doctor will tell you how much medicine to take. If your doctor wants you to stop the medicine, the dose will be slowly lowered over time to avoid any side effects. You may get drowsy or dizzy. Do not drive, use machinery, or do anything that needs mental alertness until you know how this medicine affects you. Do not stand or sit up quickly, especially if you are an older patient. This reduces the risk of dizzy or fainting spells. Alcohol may interfere with the effect of this medicine. Avoid alcoholic drinks. There are different types of narcotic medicines (opiates) for pain. If you take more than one type at the same time, you may have more side effects. Give your health care provider a list of all medicines you use. Your doctor will tell you how much medicine to take. Do not take more medicine than directed. Call emergency for help if you have problems breathing. The medicine will cause constipation. Try to have a bowel movement at least every 2 to 3 days. If you do not have a bowel movement for 3 days, call your doctor or health respiratory care instructor. Do not take Tylenol (acetaminophen) or medicines that have acetaminophen with this medicine. Too much acetaminophen can be very dangerous. Many nonprescription medicines contain acetaminophen. Always read the labels carefully to avoid taking more acetaminophen. You have been given the following additional information: Hematuria Kidney Stone W/ Colic Hematuria Ondansetron Oral disintegrating tablet Ibuprofen Oral tablet Oxycodone Hydrochloride, Acetaminophen Oral tablet (Electronically signed by Baljinder Wilson Dr. 08/06/2016 7:27)
--- NOTE | 2016-08-06 07:28 | ED MED RECONCILIATION SUMMARY ---
Patient: ANGELA SKINNER Medication Reconciliation Report [facility] VisitID: [id number] [place] [address] 55y, M Registration Date/Time: 08/05/2016 Weight: 108.8 kg Height/Length: 72 in. BMI: 32.6 ALLERGIES: No Known Drug Allergy The patient's Home Medications are listed below: NONE. The source(s) of the original Home Medication information: Not obtained. The following Medications were given to the patient in the Emergency Department: Zofran [IVP] IVP 4 mg, administered: 08/05/2016 4:36:00 AM Morphine [IVP] IVP 4 mg, administered: 08/05/2016 4:37:00 AM Toradol [IVP] IVP 30 mg, administered: 08/05/2016 4:42:00 AM IV NS IV Fluids bolus 1000 mL over 1 hour(s), administered: 08/05/2016 4:44:00 AM IV NS IV Fluids bolus 1000 mL over 1 hour(s), administered: 08/05/2016 5:46:00 AM Morphine [IVP] IVP 4 mg, administered: 08/05/2016 6:58:00 AM The following Medications were prescribed to the patient: Zofran (orally disintegrating tablets) 4 mg: take 1 orally every 8 hours as needed for nausea and vomiting. Dispense ten (10). No refill. Substitution is permissible. -- Baljinder Wilson Dr. Motrin 600 mg tablets: take 1 tablet orally every 6 hours as needed for pain. Dispense thirty (30). No refill. Substitution is permissible.(take with food) -- Baljinder Wilson Dr. Percocet 5 mg/325 mg: take 1 tablet orally every 6 hours as needed for pain. Dispense twenty (20). No refill. Substitution is permissible. -- Baljinder Wilson Dr.
--- NOTE | 2016-08-06 07:28 | ED MAR SUMMARY ---
..... Medication Administration Record [facility] [address] [place] [address] Patient: ANGELA SKINNER Visit ID: [id number] 55y, M Weight: 108.8 kg Height/Length: 72 in BMI: 32.6 ALLERGIES: No Known Drug Allergy Given 04:36 08/05/2016 Rica Weiss R.N. Medication Administered: ZOFRAN [IVP] (ONDANSETRON HCL), Dose: 4 mg IVP over 1 minute(s), Site: #1 right hand. Medication Ordered: Zofran IV 4 mg (NOW). Given 04:37 08/05/2016 Rica Weiss R.N. Medication Administered: MORPHINE [IVP], Dose: 4 mg IVP over 2 minute(s), Site: #1 right hand. Medication Ordered: Morphine IV 4 mg (HIGH ALERT MEDICATION, NOW). Given 04:42 08/05/2016 Rica Weiss R.N. Medication Administered: TORADOL [IVP], Dose: 30 mg IVP over 1 minute(s), Site: #1 right hand. Medication Ordered: Toradol IV 30 mg (NOW). Start 04:44 08/05/2016 Rica Weiss R.N., Stop 05:50 08/05/2016 Rica Weiss R.N. Medication Administered: IV NS (SALINE), Dose: IV Fluids, Bolus: 1000 mL over 1 hour(s), Dispensed: 1000 mL bag, Site: #1 right hand. Medication Ordered: IV NS : initial bolus 1000 mL (1000 mL/hr), then none - for X1 (NOW). Start 05:46 08/05/2016 Rica Weiss R.N., Stop 07:02 08/05/2016 Rica Weiss R.N. Medication Administered: IV NS (SALINE), Dose: IV Fluids, Bolus: 1000 mL over 1 hour(s), Dispensed: 1000 mL bag, Site: #1 right hand. Medication Ordered: IV NS : initial bolus 1000 mL (1000 mL/hr), then none - for X1 (NOW). Given 06:58 08/05/2016 Weiss, Rica, R.N. Medication Administered: MORPHINE [IVP], Dose: 4 mg IVP over 1 minute(s), Site: #1 right hand. Medication Ordered: Morphine IV 4 mg (HIGH ALERT MEDICATION, NOW).
--- NOTE | 2016-08-06 07:28 | ED MED RECONCILIATION SUMMARY ---
Patient: ANGELA SKINNER Medication Reconciliation Report [facility] VisitID: [id number] [address] [place] [address] 55y, M Registration Date/Time: 08/05/2016 Weight: 108.8 kg Height/Length: 72 in. BMI: 32.6 ALLERGIES: No Known Drug Allergy The patient's Home Medications are listed below: NONE. The source(s) of the original Home Medication information: Not obtained. The following Medications were given to the patient in the Emergency Department: Zofran [IVP] IVP 4 mg, administered: 08/05/2016 4:36:00 AM Morphine [IVP] IVP 4 mg, administered: 08/05/2016 4:37:00 AM Toradol [IVP] IVP 30 mg, administered: 08/05/2016 4:42:00 AM IV NS IV Fluids bolus 1000 mL over 1 hour(s), administered: 08/05/2016 4:44:00 AM IV NS IV Fluids bolus 1000 mL over 1 hour(s), administered: 08/05/2016 5:46:00 AM Morphine [IVP] IVP 4 mg, administered: 08/05/2016 6:58:00 AM The following Medications were prescribed to the patient: Zofran (orally disintegrating tablets) 4 mg: take 1 orally every 8 hours as needed for nausea and vomiting. Dispense ten (10). No refill. Substitution is permissible. -- Baljinder Wilson Dr. Motrin 600 mg tablets: take 1 tablet orally every 6 hours as needed for pain. Dispense thirty (30). No refill. Substitution is permissible.(take with food) -- Baljinder Wilson Dr. Percocet 5 mg/325 mg: take 1 tablet orally every 6 hours as needed for pain. Dispense twenty (20). No refill. Substitution is permissible. -- Baljinder Wilson Dr.
--- NOTE | 2016-08-06 07:28 | ED MAR SUMMARY ---
..... Medication Administration Record [facility] [address] [place] [address] Patient: ANGELA SKINNER Visit ID: [id number] 55y, M Weight: 108.8 kg Height/Length: 72 in BMI: 32.6 ALLERGIES: No Known Drug Allergy Given 04:36 08/05/2016 Rica Weiss R.N. Medication Administered: ZOFRAN [IVP] (ONDANSETRON HCL), Dose: 4 mg IVP over 1 minute(s), Site: #1 right hand. Medication Ordered: Zofran IV 4 mg (NOW). Given 04:37 08/05/2016 Rica Weiss R.N. Medication Administered: MORPHINE [IVP], Dose: 4 mg IVP over 2 minute(s), Site: #1 right hand. Medication Ordered: Morphine IV 4 mg (HIGH ALERT MEDICATION, NOW). Given 04:42 08/05/2016 Rica Weiss R.N. Medication Administered: TORADOL [IVP], Dose: 30 mg IVP over 1 minute(s), Site: #1 right hand. Medication Ordered: Toradol IV 30 mg (NOW). Start 04:44 08/05/2016 Rica Weiss R.N., Stop 05:50 08/05/2016 Rica Weiss R.N. Medication Administered: IV NS (SALINE), Dose: IV Fluids, Bolus: 1000 mL over 1 hour(s), Dispensed: 1000 mL bag, Site: #1 right hand. Medication Ordered: IV NS : initial bolus 1000 mL (1000 mL/hr), then none - for X1 (NOW). Start 05:46 08/05/2016 Rica Weiss R.N., Stop 07:02 08/05/2016 Rica Weiss R.N. Medication Administered: IV NS (SALINE), Dose: IV Fluids, Bolus: 1000 mL over 1 hour(s), Dispensed: 1000 mL bag, Site: #1 right hand. Medication Ordered: IV NS : initial bolus 1000 mL (1000 mL/hr), then none - for X1 (NOW). Given 06:58 08/05/2016 Weiss, Rica, R.N. Medication Administered: MORPHINE [IVP], Dose: 4 mg IVP over 1 minute(s), Site: #1 right hand. Medication Ordered: Morphine IV 4 mg (HIGH ALERT MEDICATION, NOW).
== END 2016-08-05 08:17 | disposition home or self-care (01) ==
LOC: ED SRH 04:09
DX: N20.2 Calculus of kidney with calculus of ureter (principal); I10 Essential (primary) hypertension; E11.9 Type 2 diabetes mellitus without complications
CPT/HCPCS: 90004; 90074; 90100; 92235; 94060; 95059